=== PATIENT | female | born 1955 ===

== ENCOUNTER 2022-02-25 08:46 | Outpatient (CLI) | payer OTHER | END 2022-02-25 08:55 | disposition home or self-care (01) | LOC: RAD 08:46 | PROVIDERS: ATTEND Orthopaedic Surgery | DX: S52.531A Colles' fracture of right radius, initial encounter for closed fracture (principal); M54.50 Low back pain, unspecified ==

== ENCOUNTER 2022-03-05 08:05 | Outpatient (CLI) | payer OTHER | END 2022-03-05 08:10 | disposition home or self-care (01) | LOC: RAD 08:05 | PROVIDERS: ATTEND Orthopaedic Surgery | DX: S52.531A Colles' fracture of right radius, initial encounter for closed fracture (principal) ==

== ENCOUNTER 2022-03-11 09:26 | Outpatient (CLI) | payer OTHER | END 2022-03-11 09:34 | disposition home or self-care (01) | LOC: RAD 09:26 | PROVIDERS: ATTEND Orthopaedic Surgery | DX: S52.531A Colles' fracture of right radius, initial encounter for closed fracture (principal) ==

== ENCOUNTER 2022-04-09 08:19 | Outpatient (CLI) | payer OTHER | END 2022-04-09 08:20 | disposition home or self-care (01) | LOC: RAD 08:19 | PROVIDERS: ATTEND Orthopaedic Surgery | DX: S52.531A Colles' fracture of right radius, initial encounter for closed fracture (principal) ==